=== PATIENT | female | born 1940 | race Two or more races ===

== ENCOUNTER 2016-06-29 15:21 | Inpatient (IN) | payer MEDICARE, OTHER ==
[~2016-06-29] VITALS: Ht 157.5 cm; Wt 72.6 kg
[2016-06-29] MEDS ORDERED: ONDANSETRON HCL 4MG/2ML VIAL IV STA (16:09)
[2016-06-29] MEDS ORDERED: MORPHINE SULFATE 4 MG/ML CPJ (NOT FOR IM USE) IV STA (16:09)
[2016-06-29] MEDS ORDERED: SODIUM CHLORIDE 0.9% 1,000 ML IV ONE (16:09)
[2016-06-29 16:30] LABS: EOSINOPHILS % 1.5 % (0.0-5.0); HEMATOCRIT. 37.9 % (36.0-48.0); HEMOGLOBIN. 12.2 g/dL (12.0-16.0); LYMPHOCYTES % 20.1 % (20.0-50.0); MEAN CORPUSCULAR HEMOGLOBIN 28.6 pg (28.0-32.0); MEAN CORPUSCULAR HGB CONC 32.2 g/dL (31.0-37.0); MEAN PLATELET VOLUME 7.7 fl (7.4-10.4); MONOCYTES % 12.5 % (2.0-8.0); NEUTROPHILS % 64.9 % (40.0-76.0); PLATELET 196 x1000/uL (130-400); RED BLOOD CELL COUNT 4.26 mill/uL (4.2-5.4); WHITE BLOOD COUNT 6.9 x1000/uL (4.5-11.0)
[2016-06-29 16:33] LABS: INR 1.1; PROTHROMBIN TIME 11.2 sec
[2016-06-29 16:34] LABS: ALBUMIN 3.3 g/dL (3.4-5.0); CALCIUM 9.5 mg/dL (8.5-10.1); CHLORIDE 96 mEq/L (98-107); INDEX HEMOLYSI 1 (1-3); INDEX ICTERIC 1 (1-4); INDEX LIPEMIC 1 (1-3)
[2016-06-29 16:38] LABS: ALANINE AMINOTRANSFERASE 17 IU/L (13-61); ANION GAP 15; CARBON DIOXIDE 31 mEq/L (21-32); LIPASE 277 IU/L (73-393); UREA NITROGEN BLOOD 52 mg/dL (7-21); eGFR 9 mL/min (>60)
[2016-06-29 16:42] LABS: NT PRO B-TYPE NATRIURETIC PEP 8249 pg/mL (5-125); TROPONIN I 0.02 ng/mL (0.00-0.04)
[2016-06-29] MEDS ORDERED: ASPIRIN 81MG TABLET PO ONE (19:00)
[2016-06-29] MEDS: CARVEDILOL 6.25 MG TABLET PO SCH ×2 (21:00→22:53)
[2016-06-29 22:30] VITALS: BP 178/85
[2016-06-29] MEDS: ATORVASTATIN CALCIUM 40MG TABLET PO SCH (22:53)
[2016-06-30] VITALS (7 sets, daily range): BP systolic 134–209; BP diastolic 79–102
[2016-06-30] MEDS ORDERED: MORPHINE SULFATE 4 MG/ML CPJ (NOT FOR IM USE) IV PRN (00:15)
[2016-06-30] MEDS ORDERED: MORPHINE SULFATE 2 MG/ML CPJ (NOT FOR IM USE) IV PRN (00:15)
[2016-06-30 06:34] LABS: HEMATOCRIT. 32.8 % (36.0-48.0); HEMOGLOBIN. 10.5 g/dL (12.0-16.0); MEAN CORPUSCULAR HEMOGLOBIN 28.6 pg (28.0-32.0); MEAN CORPUSCULAR VOLUME 89.6 fL (81.0-99.0); MEAN PLATELET VOLUME 7.9 fl (7.4-10.4); PLATELET 160 x1000/uL (130-400); RED BLOOD CELL COUNT 3.66 mill/uL (4.2-5.4); WHITE BLOOD COUNT 3.9 x1000/uL (4.5-11.0)
[2016-06-30] MEDS: OMEPRAZOLE 20MG CAPSULE EXTENDED RELEASE PO SCH (06:46)
[2016-06-30 07:24] LABS: DIFFERENTIAL COMMENT 1
[2016-06-30 07:51] LABS: ALANINE AMINOTRANSFERASE 14 IU/L (13-61); ALBUMIN 2.6 g/dL (3.4-5.0); ANION GAP 16; CALCIUM 8.2 mg/dL (8.5-10.1); CARBON DIOXIDE 29 mEq/L (21-32); CHLORIDE 99 mEq/L (98-107); INDEX HEMOLYSI 1 (1-3); INDEX ICTERIC 1 (1-4); INDEX LIPEMIC 1 (1-3); MAGNESIUM 1.9 mg/dL (1.8-2.4); PHOSPHORUS 5.5 mg/dL (2.5-4.9); UREA NITROGEN BLOOD 56 mg/dL (7-21); eGFR 8 mL/min (>60)
[2016-06-30] MEDS: CLOPIDOGREL 75MG TABLET PO SCH ×2 (09:00→18:43)
[2016-06-30] MEDS ORDERED: NIFEDIPINE XL 60MG TAB PO SCH (09:00)
[2016-06-30] MEDS ORDERED: CARVEDILOL 6.25 MG TABLET PO SCH (09:00)
[2016-06-30] MEDS: ASPIRIN 81MG TABLET PO SCH ×2 (09:00→18:43)
[2016-06-30] MEDS ORDERED: LOSARTAN POTASSIUM 50 MG TABLET PO SCH (09:00)
[2016-06-30] MEDS: SEVELAMER CARBONATE 800 MG TABLET PO SCH ×3 (09:53→16:40)
[2016-06-30] MEDS: LOSARTAN POTASSIUM 50 MG TABLET PO SCH (09:53)
[2016-06-30] MEDS: NIFEDIPINE XL 60MG TAB PO SCH (09:54)
[2016-06-30] MEDS: CARVEDILOL 6.25 MG TABLET PO SCH ×2 (09:54→20:31)
[2016-06-30] MEDS: FUROSEMIDE 80MG TABLET PO SCH (09:54)
[2016-06-30] MEDS: ENOXAPARIN 30MG/0.3ML SYR SUBCUT SCH ×2 (13:30→16:37)
[2016-06-30] MEDS ORDERED: ONDANSETRON HCL 4MG/2ML VIAL IV PRN (14:00)
[2016-06-30 14:01] LABS: ANISOCYTOSIS 1+; PLATELET ESTIMATE NORMAL
[2016-06-30] MEDS: METOCLOPRAMIDE HCL 5MG TABLET PO SCH ×2 (16:37→20:32)
[2016-06-30] MEDS: ATORVASTATIN CALCIUM 40MG TABLET PO SCH (20:31)
[2016-06-30] MEDS: HYDRALAZINE HCL 50MG TABLET PO SCH (20:31)
[2016-06-30] MEDS ORDERED: LIDOCAINE 5% PATCH TOP SCH (21:30)
[2016-06-30] MEDS: CLONIDINE 0.1MG TABLET PO PRN (23:06)
[2016-07-01 02:00] VITALS: BP 131/69
[2016-07-01 04:00] VITALS: BP 161/91
[2016-07-01 06:45] LABS: BASOPHILS % 0.4 % (0.0-2.0); EOSINOPHILS % 0.2 % (0.0-5.0); HEMATOCRIT. 33.8 % (36.0-48.0); HEMOGLOBIN. 10.9 g/dL (12.0-16.0); LYMPHOCYTES % 19.1 % (20.0-50.0); MEAN CORPUSCULAR HEMOGLOBIN 28.5 pg (28.0-32.0); MEAN CORPUSCULAR HGB CONC 32.2 g/dL (31.0-37.0); MEAN CORPUSCULAR VOLUME 88.5 fL (81.0-99.0); MEAN PLATELET VOLUME 7.8 fl (7.4-10.4); MONOCYTES % 13.4 % (2.0-8.0); NEUTROPHILS % 66.9 % (40.0-76.0); PLATELET 167 x1000/uL (130-400); RED BLOOD CELL COUNT 3.82 mill/uL (4.2-5.4); RED CELL DISTRIBUTION WIDTH 15.4 % (11.6-14.6); WHITE BLOOD COUNT 6.5 x1000/uL (4.5-11.0)
[2016-07-01 07:02] LABS: CHLORIDE 98 mEq/L (98-107); INDEX HEMOLYSI 1 (1-3); INDEX ICTERIC 1 (1-4); INDEX LIPEMIC 1 (1-3)
[2016-07-01] MEDS: METOCLOPRAMIDE HCL 5MG TABLET PO SCH ×4 (07:08→21:32)
[2016-07-01] MEDS: OMEPRAZOLE 20MG CAPSULE EXTENDED RELEASE PO SCH (07:08)
[2016-07-01 07:10] LABS: ALANINE AMINOTRANSFERASE 16 IU/L (13-61); ALBUMIN 2.7 g/dL (3.4-5.0); ANION GAP 18; CALCIUM 8.4 mg/dL (8.5-10.1); CARBON DIOXIDE 25 mEq/L (21-32); PHOSPHORUS 7.2 mg/dL (2.5-4.9); UREA NITROGEN BLOOD 45 mg/dL (7-21); eGFR 8 mL/min (>60)
[2016-07-01 08:00] VITALS: BP 179/97
[2016-07-01] MEDS: SEVELAMER CARBONATE 800 MG TABLET PO SCH ×2 (08:40→17:55)
[2016-07-01] MEDS: NIFEDIPINE XL 60MG TAB PO SCH ×2 (08:40→23:46)
[2016-07-01] MEDS: LOSARTAN POTASSIUM 50 MG TABLET PO SCH ×2 (08:41→21:31)
[2016-07-01] MEDS: CLONIDINE 0.1MG TABLET PO PRN (08:41)
[2016-07-01] MEDS: HYDRALAZINE HCL 50MG TABLET PO SCH (08:41)
[2016-07-01] MEDS: FUROSEMIDE 80MG TABLET PO SCH (08:41)
[2016-07-01] MEDS: ASPIRIN 81MG TABLET PO SCH (08:41)
[2016-07-01] MEDS: CLOPIDOGREL 75MG TABLET PO SCH (08:41)
[2016-07-01] MEDS: CARVEDILOL 6.25 MG TABLET PO SCH ×2 (08:42→21:32)
[2016-07-01] MEDS: ENOXAPARIN 30MG/0.3ML SYR SUBCUT SCH (08:42)
[2016-07-01 12:00] VITALS: BP 99/58
[2016-07-01] MEDS ORDERED: SEVELAMER CARBONATE 800 MG TABLET PO SCH (13:15)
[2016-07-01] MEDS ORDERED: MAGNESIUM CITRATE 300ML SOLUTION PO NR (13:30)
[2016-07-01 16:00] VITALS: BP_SYST 101; BP_SYST 110; BP_DIAS 56; BP_DIAS 58; BP_DIAS 66
[2016-07-01 20:00] VITALS: BP_SYST 109; BP_SYST 115; BP_SYST 129; BP_DIAS 57; BP_DIAS 67; BP_DIAS 75
[2016-07-01] MEDS: LIDOCAINE 5% PATCH TOP SCH (21:33)
[2016-07-01] MEDS: ATORVASTATIN CALCIUM 40MG TABLET PO SCH (21:33)
[2016-07-01] MEDS: HYDRALAZINE HCL 100MG TABLET PO SCH (23:46)
[2016-07-02] VITALS (7 sets, daily range): BP systolic 138–189; BP diastolic 62–92
[2016-07-02 05:14] LABS: BASOPHILS % 0.1 % (0.0-2.0); EOSINOPHILS % 0.7 % (0.0-5.0); HEMATOCRIT. 32.1 % (36.0-48.0); HEMOGLOBIN. 10.4 g/dL (12.0-16.0); LYMPHOCYTES % 22.1 % (20.0-50.0); MEAN CORPUSCULAR HEMOGLOBIN 28.4 pg (28.0-32.0); MEAN CORPUSCULAR HGB CONC 32.3 g/dL (31.0-37.0); MEAN CORPUSCULAR VOLUME 87.9 fL (81.0-99.0); MEAN PLATELET VOLUME 7.7 fl (7.4-10.4); MONOCYTES % 11.1 % (2.0-8.0); PLATELET 162 x1000/uL (130-400); RED BLOOD CELL COUNT 3.65 mill/uL (4.2-5.4); RED CELL DISTRIBUTION WIDTH 15.9 % (11.6-14.6); WHITE BLOOD COUNT 6.5 x1000/uL (4.5-11.0)
[2016-07-02 05:55] LABS: CALCIUM 8.1 mg/dL (8.5-10.1); MAGNESIUM 2.5 mg/dL (1.8-2.4)
[2016-07-02] MEDS: METOCLOPRAMIDE HCL 5MG TABLET PO SCH ×4 (06:42→20:59)
[2016-07-02] MEDS: OMEPRAZOLE 20MG CAPSULE EXTENDED RELEASE PO SCH (06:42)
[2016-07-02] MEDS: SEVELAMER CARBONATE 800 MG TABLET PO SCH ×3 (08:21→19:01)
[2016-07-02] MEDS: FUROSEMIDE 80MG TABLET PO SCH (08:21)
[2016-07-02] MEDS: HYDRALAZINE HCL 100MG TABLET PO SCH ×2 (08:26→22:22)
[2016-07-02] MEDS: CARVEDILOL 6.25 MG TABLET PO SCH ×2 (08:26→22:22)
[2016-07-02] MEDS: LOSARTAN POTASSIUM 50 MG TABLET PO SCH ×2 (08:26→22:22)
[2016-07-02] MEDS: ASPIRIN 81MG TABLET PO SCH (08:26)
[2016-07-02] MEDS: CLOPIDOGREL 75MG TABLET PO SCH (08:27)
[2016-07-02] MEDS: ENOXAPARIN 30MG/0.3ML SYR SUBCUT SCH (08:27)
[2016-07-02] MEDS: NIFEDIPINE XL 60MG TAB PO SCH ×2 (08:27→22:22)
[2016-07-02] MEDS: ATORVASTATIN CALCIUM 40MG TABLET PO SCH (20:59)
[2016-07-02] MEDS: LIDOCAINE 5% PATCH TOP SCH (21:09)
[2016-07-03] VITALS (7 sets, daily range): BP systolic 116–194; BP diastolic 52–80
[2016-07-03 04:17] LABS: CA 19-9 23 U/mL (0-35); CA 27.29 < 3.5 U/mL (0.0-38.6)
[2016-07-03] MEDS: OMEPRAZOLE 20MG CAPSULE EXTENDED RELEASE PO SCH (06:04)
[2016-07-03] MEDS: METOCLOPRAMIDE HCL 5MG TABLET PO SCH ×4 (06:04→20:59)
[2016-07-03 06:51] LABS: BASOPHILS % 0.3 % (0.0-2.0); HEMATOCRIT. 33.7 % (36.0-48.0); HEMOGLOBIN. 10.8 g/dL (12.0-16.0); LYMPHOCYTES % 17.4 % (20.0-50.0); MEAN CORPUSCULAR HEMOGLOBIN 28.3 pg (28.0-32.0); MEAN CORPUSCULAR VOLUME 88.3 fL (81.0-99.0); MEAN PLATELET VOLUME 8.1 fl (7.4-10.4); MONOCYTES % 12.2 % (2.0-8.0); NEUTROPHILS % 69.1 % (40.0-76.0); PLATELET 164 x1000/uL (130-400); RED BLOOD CELL COUNT 3.82 mill/uL (4.2-5.4); RED CELL DISTRIBUTION WIDTH 15.6 % (11.6-14.6); WHITE BLOOD COUNT 5.3 x1000/uL (4.5-11.0)
[2016-07-03 08:41] LABS: CALCIUM 8.8 mg/dL (8.5-10.1); MAGNESIUM 2.3 mg/dL (1.8-2.4); PHOSPHORUS 4.9 mg/dL (2.5-4.9)
[2016-07-03] MEDS: SEVELAMER CARBONATE 800 MG TABLET PO SCH ×3 (08:50→17:22)
[2016-07-03] MEDS: CARVEDILOL 6.25 MG TABLET PO SCH ×2 (08:50→20:59)
[2016-07-03] MEDS: FUROSEMIDE 80MG TABLET PO SCH (08:51)
[2016-07-03] MEDS: NIFEDIPINE XL 60MG TAB PO SCH ×2 (08:51→20:58)
[2016-07-03] MEDS: ASPIRIN 81MG TABLET PO SCH (08:51)
[2016-07-03] MEDS: CLOPIDOGREL 75MG TABLET PO SCH (08:51)
[2016-07-03] MEDS: LOSARTAN POTASSIUM 50 MG TABLET PO SCH ×2 (08:51→20:58)
[2016-07-03] MEDS: ENOXAPARIN 30MG/0.3ML SYR SUBCUT SCH (08:53)
[2016-07-03] MEDS: HYDRALAZINE HCL 100MG TABLET PO SCH ×2 (08:53→20:58)
[2016-07-03] MEDS: LIDOCAINE 5% PATCH TOP SCH (20:59)
[2016-07-03] MEDS: ATORVASTATIN CALCIUM 40MG TABLET PO SCH (21:03)
[2016-07-04] VITALS: BP 135/80
[2016-07-04 04:00] VITALS: BP 139/52
[2016-07-04] MEDS: METOCLOPRAMIDE HCL 5MG TABLET PO SCH ×4 (06:09→20:48)
[2016-07-04 06:52] LABS: BASOPHILS % 0.4 % (0.0-2.0); EOSINOPHILS % 2.1 % (0.0-5.0); HEMATOCRIT. 32.5 % (36.0-48.0); HEMOGLOBIN. 10.4 g/dL (12.0-16.0); LYMPHOCYTES % 18.7 % (20.0-50.0); MEAN CORPUSCULAR HEMOGLOBIN 28.5 pg (28.0-32.0); MEAN CORPUSCULAR VOLUME 89.2 fL (81.0-99.0); MEAN PLATELET VOLUME 8.1 fl (7.4-10.4); MONOCYTES % 13.3 % (2.0-8.0); NEUTROPHILS % 65.5 % (40.0-76.0); PLATELET 164 x1000/uL (130-400); RED BLOOD CELL COUNT 3.65 mill/uL (4.2-5.4); RED CELL DISTRIBUTION WIDTH 15.6 % (11.6-14.6); WHITE BLOOD COUNT 5.8 x1000/uL (4.5-11.0)
[2016-07-04 07:36] LABS: MAGNESIUM 2.3 mg/dL (1.8-2.4); PHOSPHORUS 4.4 mg/dL (2.5-4.9)
[2016-07-04 08:00] VITALS: BP_SYST 130; BP_SYST 137; BP_SYST 154; BP_DIAS 74; BP_DIAS 77; BP_DIAS 86
[2016-07-04] MEDS: CARVEDILOL 6.25 MG TABLET PO SCH ×2 (08:20→20:48)
[2016-07-04] MEDS: LOSARTAN POTASSIUM 50 MG TABLET PO SCH ×2 (08:20→20:48)
[2016-07-04] MEDS: SEVELAMER CARBONATE 800 MG TABLET PO SCH ×3 (08:20→17:13)
[2016-07-04] MEDS: NIFEDIPINE XL 60MG TAB PO SCH ×2 (08:21→20:48)
[2016-07-04] MEDS: ASPIRIN 81MG TABLET PO SCH (08:21)
[2016-07-04] MEDS: FUROSEMIDE 80MG TABLET PO SCH (08:21)
[2016-07-04] MEDS: ENOXAPARIN 30MG/0.3ML SYR SUBCUT SCH (08:23)
[2016-07-04] MEDS: HYDRALAZINE HCL 100MG TABLET PO SCH ×2 (08:24→20:48)
[2016-07-04] MEDS ORDERED: POLYETHYLENE GLYCOL 3350 (17GM) 1 DOSE PACK PO NR ×2 (09:00→16:05)
[2016-07-04] MEDS ORDERED: FAMOTIDINE 20MG TABLET PO SCH (09:00)
[2016-07-04] MEDS: SODIUM POLYSTYRENE SULFONATE 15 G/60 ML BOT PO NR ×2 (09:12→09:15)
[2016-07-04 11:57] VITALS: BP 145/63
[2016-07-04] MEDS ORDERED: ONDANSETRON HCL 4MG/2ML VIAL IV NR (13:00)
[2016-07-04] MEDS ORDERED: SODIUM POLYSTYRENE SULFONATE 15 G/60 ML BOT PO NR (13:00)
[2016-07-04 16:00] VITALS: BP 159/96
[2016-07-04 20:00] VITALS: BP 157/72
[2016-07-04] MEDS: LIDOCAINE 5% PATCH TOP SCH (20:51)
[2016-07-04] MEDS: ATORVASTATIN CALCIUM 40MG TABLET PO SCH (20:58)
[2016-07-05] VITALS: BP 158/75
[2016-07-05 04:00] VITALS: BP 127/85
[2016-07-05 06:19] VITALS: BP 150/68
[2016-07-05 06:26] LABS: CALCIUM 9.3 mg/dL (8.5-10.1); MAGNESIUM 2.3 mg/dL (1.8-2.4); PHOSPHORUS 5.2 mg/dL (2.5-4.9)
[2016-07-05] MEDS: METOCLOPRAMIDE HCL 5MG TABLET PO SCH (06:48)
[2016-07-05] MEDS: SEVELAMER CARBONATE 800 MG TABLET PO SCH (06:49)
[2016-07-05 07:49] VITALS: BP 158/77
[2016-07-05 07:54] LABS: BASOPHILS % 0.5 % (0.0-2.0); EOSINOPHILS % 2.6 % (0.0-5.0); HEMOGLOBIN. 10.2 g/dL (12.0-16.0); LYMPHOCYTES % 29.3 % (20.0-50.0); MEAN CORPUSCULAR HEMOGLOBIN 28.2 pg (28.0-32.0); MEAN CORPUSCULAR VOLUME 88.1 fL (81.0-99.0); MEAN PLATELET VOLUME 8.3 fl (7.4-10.4); MONOCYTES % 14.3 % (2.0-8.0); NEUTROPHILS % 53.3 % (40.0-76.0); PLATELET 172 x1000/uL (130-400); RED BLOOD CELL COUNT 3.64 mill/uL (4.2-5.4); RED CELL DISTRIBUTION WIDTH 15.7 % (11.6-14.6); WHITE BLOOD COUNT 4.2 x1000/uL (4.5-11.0)
[2016-07-06 14:11] LABS: CANCER ANTIGEN 125 25.6 U/mL (0.0-38.1)
== END 2016-07-05 08:38 | disposition home or self-care (01) | DRG 64 ==
LOC: ER 15:22 → 8WST 18:54
PROVIDERS: ADMIT Internal Medicine Critical Care Medicine; ATTEND Internal Medicine Critical Care Medicine
PROC: 5A1D60Z (ICD-10-PCS; principal; 2016-06-30)
DX: I63.9 Cerebral infarction, unspecified (principal); J96.91 Respiratory failure, unspecified with hypoxia; N18.6 End stage renal disease; N25.81 Secondary hyperparathyroidism of renal origin; E44.0 Moderate protein-calorie malnutrition; I13.11 Hypertensive heart and chronic kidney disease without heart failure, with stage 5 chronic kidney disease, or end stage renal disease; I42.9 Cardiomyopathy, unspecified; D64.9 Anemia, unspecified; E11.22 Type 2 diabetes mellitus with diabetic chronic kidney disease; E83.39 Other disorders of phosphorus metabolism; E87.5 Hyperkalemia; I25.10 Atherosclerotic heart disease of native coronary artery without angina pectoris; I27.2 Other secondary pulmonary hypertension; I70.0 Atherosclerosis of aorta; J44.9 Chronic obstructive pulmonary disease, unspecified; K44.9 Diaphragmatic hernia without obstruction or gangrene; K57.30 Diverticulosis of large intestine without perforation or abscess without bleeding; K59.00 Constipation, unspecified; M32.14 Glomerular disease in systemic lupus erythematosus; N28.1 Cyst of kidney, acquired; N83.9 Noninflammatory disorder of ovary, fallopian tube and broad ligament, unspecified; Z96.1 Presence of intraocular lens; S20.212A Contusion of left front wall of thorax, initial encounter; X58.XXXA Exposure to other specified factors, initial encounter; Z99.2 Dependence on renal dialysis; I25.2 Old myocardial infarction; Z83.3 Family history of diabetes mellitus; Z82.49 Family history of ischemic heart disease and other diseases of the circulatory system; Z86.73 Personal history of transient ischemic attack (TIA), and cerebral infarction without residual deficits; Y93.89 Activity, other specified; Y92.89 Other specified places as the place of occurrence of the external cause; Y99.8 Other external cause status; Z68.29 Body mass index [BMI] 29.0-29.9, adult; Z87.891 Personal history of nicotine dependence
CPT/HCPCS: 36415; 70551; 71010; 71100; 71250; 73090; 74176; 76830; 76856; 78306; 80048; 80053; 80061; 82378; 83036; 83690; 83735; 83880; 84100; 84132; 84134; 84484; 85025; 85610; 86300; 86301; 86304; 86305; 86850; 86900; 93005; 93306; 93880; 96361; 96374; 96375; 99285; A9503; C1893; J1650; J2270; J2405; J7030; J8597

== ENCOUNTER → 2016-07-11 | Day surgery (SDC) | payer MEDICARE, OTHER ==
[~2016-07-11] VITALS: Ht 157.5 cm; Wt 72.1 kg
[~2016-07-11] MED LIST: ASPI-1035 PO; ATOR80TA PO; CARV6.2548 PO; CLOP75TA2 PO; FENTANYL CITRATE/PF 50MCG/ML 2ML VIAL ONE; FURO80TA87 PO; LOSA1TAB34 PO; NIFE60TA64 PO
== END | disposition home or self-care (01) ==
LOC: RAD 08:30
PROVIDERS: ATTEND Internal Medicine Critical Care Medicine
DX: R91.8 Other nonspecific abnormal finding of lung field (principal)
CPT/HCPCS: J3010

== ENCOUNTER 2016-07-16 11:28 | Emergency (ER) | payer MEDICARE, OTHER ==
[~2016-07-16] VITALS: Ht 165.1 cm; Wt 60.0 kg
[~2016-07-16 11:28] MED LIST changes: -FENTANYL CITRATE/PF 50MCG/ML 2ML VIAL ONE
[2016-07-16] MEDS ORDERED: CLONIDINE 0.2MG TABLET PO ONE (12:15)
[2016-07-16] MEDS ORDERED: CARVEDILOL 6.25 MG TABLET PO ONE (12:15)
[2016-07-16] MEDS ORDERED: LOSARTAN POTASSIUM 50 MG TABLET PO ONE (12:15)
[2016-07-16] MEDS ORDERED: NIFEDIPINE XL 60MG TAB PO ONE (12:15)
[2016-07-16 13:36] VITALS: BP 175/81
== END 2016-07-16 14:58 | disposition home or self-care (01) ==
LOC: ER 14:49
DX: I12.0 Hypertensive chronic kidney disease with stage 5 chronic kidney disease or end stage renal disease (principal); N18.6 End stage renal disease; Z99.2 Dependence on renal dialysis; Z88.8 Allergy status to other drugs, medicaments and biological substances
CPT/HCPCS: 99284

== ENCOUNTER → 2016-07-16 | Day surgery (SDC) | payer MEDICARE, OTHER ==
[2016-07-16] VITALS (9 sets, daily range): BP systolic 205–230; BP diastolic 89–104
[~2016-07-16] VITALS: Ht 160 cm; Wt 47.2 kg
== END | disposition home or self-care (01) ==
LOC: RAD 09:20
PROVIDERS: ATTEND Internal Medicine Critical Care Medicine
DX: R91.8 Other nonspecific abnormal finding of lung field (principal); Z53.8 Procedure and treatment not carried out for other reasons
CPT/HCPCS: J3010

== ENCOUNTER → 2016-08-24 | Outpatient (CLI) | payer MEDICARE, OTHER ==
[~2016-08-24] MED LIST changes: -CLOP75TA2 PO
== END | disposition home or self-care (01) ==
LOC: RAD 08:40
PROVIDERS: ATTEND Internal Medicine Critical Care Medicine
DX: Z01.811 Encounter for preprocedural respiratory examination (principal); I12.0 Hypertensive chronic kidney disease with stage 5 chronic kidney disease or end stage renal disease; N18.5 Chronic kidney disease, stage 5; J44.9 Chronic obstructive pulmonary disease, unspecified; I51.7 Cardiomegaly; I49.9 Cardiac arrhythmia, unspecified; R94.31 Abnormal electrocardiogram [ECG] [EKG]
CPT/HCPCS: 71020; 93005

== ENCOUNTER → 2016-08-27 | Outpatient (CLI) | payer MEDICARE, OTHER ==
[2016-08-27 09:20] LABS: BASOPHILS % 0.8 % (0.0-2.0); EOSINOPHILS % 2.3 % (0.0-5.0); HEMATOCRIT. 27.6 % (36.0-48.0); HEMOGLOBIN. 8.8 g/dL (12.0-16.0); LYMPHOCYTES % 20.9 % (20.0-50.0); MEAN CORPUSCULAR HEMOGLOBIN 30.4 pg (28.0-32.0); MEAN CORPUSCULAR VOLUME 94.7 fL (81.0-99.0); MEAN PLATELET VOLUME 6.5 fl (7.4-10.4); MONOCYTES % 9.2 % (2.0-8.0); NEUTROPHILS % 66.8 % (40.0-76.0); PLATELET 331 x1000/uL (130-400); RED BLOOD CELL COUNT 2.91 mill/uL (4.2-5.4); RED CELL DISTRIBUTION WIDTH 18.5 % (11.6-14.6)
[2016-08-27 09:22] LABS: CLARITY URINE CLEAR (CLEAR); COLOR URINE YELLOW (YELLOW); GLUCOSE URINE NEGATIVE (NEGATIVE); KETONES URINE NEGATIVE (NEGATIVE); LEUKOCYTE ESTERASE URINE NEGATIVE (NEGATIVE); NITRITE URINE NEGATIVE (NEGATIVE); OCCULT BLOOD URINE NEGATIVE (NEGATIVE); PH URINE 8.5 (4.5-8.0); PROTEIN URINE 3+ (NEGATIVE); SPECIFIC GRAVITY URINE 1.012 (1.005-1.030); UROBILINOGEN URINE 0.2 E.U./dL (0.2-1.0)
[2016-08-27 09:30] LABS: INR 1.1; PARTIAL THROMBOPLASTIN TIME 30.5 sec (24.0-34.0)
[2016-08-27 09:46] LABS: CARBON DIOXIDE 32 mEq/L (21-32); CHLORIDE 101 mEq/L (98-107)
== END | disposition home or self-care (01) ==
LOC: LAB 08:40
PROVIDERS: ATTEND Internal Medicine Critical Care Medicine
DX: Z01.811 Encounter for preprocedural respiratory examination (principal); I12.0 Hypertensive chronic kidney disease with stage 5 chronic kidney disease or end stage renal disease; N18.5 Chronic kidney disease, stage 5
CPT/HCPCS: 36415; 80053; 81001; 85025; 85610; 85730; 87086

== ENCOUNTER 2017-01-15 10:34 | Inpatient (IN) | payer MEDICARE, OTHER ==
[~2017-01-15] VITALS: Ht 160 cm; Wt 45.8 kg
[~2017-01-15 10:34] MED LIST changes: -ASPI-1035 PO; +ASPI-1159 PO
[2017-01-15] MEDS ORDERED: HYDRALAZINE 20MG/ML VIAL IV ONE (11:45)
[2017-01-15 11:58] LABS: EOSINOPHILS % 0.2 % (0.0-5.0); HEMATOCRIT. 33.3 % (36.0-48.0); LYMPHOCYTES % 14.6 % (20.0-50.0); MEAN CORPUSCULAR VOLUME 90.5 fL (81.0-99.0); MEAN PLATELET VOLUME 7.6 fl (7.4-10.4); MONOCYTES % 7.9 % (2.0-8.0); NEUTROPHILS % 76.3 % (40.0-76.0); PLATELET 138 x1000/uL (130-400); RED BLOOD CELL COUNT 3.68 mill/uL (4.2-5.4); RED CELL DISTRIBUTION WIDTH 18.6 % (11.6-14.6)
[2017-01-15 12:07] LABS: PARTIAL THROMBOPLASTIN TIME 28.7 sec (23.4-31.0); PROTHROMBIN TIME 10.4 sec (9.4-11.6)
[2017-01-15 12:12] LABS: CARBON DIOXIDE 24 mEq/L (21-32); CHLORIDE 102 mEq/L (98-107); PHOSPHORUS 3.3 mg/dL (2.5-4.9)
[2017-01-15] MEDS ORDERED: TETANUS, DIPHTHERIA, PERTUSSIS VAC/PF 0.5ML (>7YR OLD) IM ONE (12:15)
[2017-01-15 12:18] LABS: TROPONIN I 0.04 ng/mL (0.00-0.04)
[2017-01-15] MEDS ORDERED: LABETALOL 5MG/ML SYR 20 MG/4 ML SYRINGE IV ONE (12:30)
[2017-01-15 14:44] LABS: BASOPHILS % 0.5 % (0.0-2.0); EOSINOPHILS % 0.2 % (0.0-5.0); HEMATOCRIT. 31.7 % (36.0-48.0); HEMOGLOBIN. 10.6 g/dL (12.0-16.0); LYMPHOCYTES % 11.7 % (20.0-50.0); MEAN CORPUSCULAR HEMOGLOBIN 30.5 pg (28.0-32.0); MEAN PLATELET VOLUME 7.6 fl (7.4-10.4); MONOCYTES % 12.1 % (2.0-8.0); NEUTROPHILS % 75.5 % (40.0-76.0); PLATELET 122 x1000/uL (130-400); RED BLOOD CELL COUNT 3.48 mill/uL (4.2-5.4); RED CELL DISTRIBUTION WIDTH 18.4 % (11.6-14.6)
[2017-01-15] MEDS ORDERED: CLONIDINE 0.2MG TABLET PO ONE (14:45)
[2017-01-15] MEDS ORDERED: HYDRALAZINE 20MG/ML VIAL IV NR (16:30)
[2017-01-15] MEDS ORDERED: CARVEDILOL 6.25 MG TABLET PO SCH (17:00)
[2017-01-15] MEDS: SEVELAMER CARBONATE 800 MG TABLET PO SCH (18:30)
[2017-01-15 21:00] VITALS: BP 152/57
[2017-01-15 22:00] VITALS: BP 152/57
[2017-01-16] VITALS: BP 168/61
[2017-01-16 04:00] VITALS: BP 155/60
[2017-01-16 06:45] LABS: HEMATOCRIT. 25.5 % (36.0-48.0); HEMOGLOBIN. 8.3 g/dL (12.0-16.0); MEAN CORPUSCULAR HEMOGLOBIN 29.7 pg (28.0-32.0); MEAN CORPUSCULAR VOLUME 91.1 fL (81.0-99.0); MEAN PLATELET VOLUME 8.3 fl (7.4-10.4); PLATELET 101 x1000/uL (130-400); RED CELL DISTRIBUTION WIDTH 18.5 % (11.6-14.6)
[2017-01-16 07:25] LABS: PHOSPHORUS 4.2 mg/dL (2.5-4.9)
[2017-01-16 08:00] VITALS: BP 120/60
[2017-01-16] MEDS: CARVEDILOL 6.25 MG TABLET PO SCH ×2 (09:00→18:24)
[2017-01-16] MEDS: NIFEDIPINE XL 60MG TAB PO SCH (09:00)
[2017-01-16] MEDS: LIDOCAINE 5% PATCH TOP SCH (09:00)
[2017-01-16] MEDS ORDERED: NIFEDIPINE XL 60MG TAB PO SCH (09:00)
[2017-01-16] MEDS: FOLIC ACID/VITAMIN B COMP W-C TABLET PO SCH (09:14)
[2017-01-16] MEDS: SEVELAMER CARBONATE 800 MG TABLET PO SCH ×3 (09:14→18:24)
[2017-01-16] MEDS: LOSARTAN POTASSIUM 50 MG TABLET PO SCH (11:48)
[2017-01-16 12:00] VITALS: BP 124/64
[2017-01-16] MEDS ORDERED: INFLUENZA VIRUS VACCINE 0.5ML SYR IM ONE (12:00)
[2017-01-16] MEDS ORDERED: PNEUMOCOCCAL 23-VAL P-SAC VAC 0.5 ML IM ONE (12:00)
[2017-01-16] MEDS: HYDROCODONE/ACETAMINOPHEN 5/325MG TABLET PO PRN ×2 (13:46→20:51)
[2017-01-16 16:00] VITALS: BP 150/69
[2017-01-16 18:09] LABS: PLATELET ESTIMATE DECREASED
[2017-01-16 20:00] VITALS: BP 143/66
[2017-01-16] MEDS: CLONIDINE 0.1MG TABLET PO PRN (23:54)
[2017-01-17] VITALS: BP 172/79
[2017-01-17 04:00] VITALS: BP 146/65
[2017-01-17 06:53] LABS: BASOPHILS % 0.5 % (0.0-2.0); EOSINOPHILS % 3.9 % (0.0-5.0); HEMATOCRIT. 26.3 % (36.0-48.0); HEMOGLOBIN. 8.8 g/dL (12.0-16.0); LYMPHOCYTES % 24.7 % (20.0-50.0); MEAN CORPUSCULAR HEMOGLOBIN 30.5 pg (28.0-32.0); MEAN CORPUSCULAR VOLUME 91.6 fL (81.0-99.0); MEAN PLATELET VOLUME 8.1 fl (7.4-10.4); MONOCYTES % 13.4 % (2.0-8.0); NEUTROPHILS % 57.5 % (40.0-76.0); PLATELET 101 x1000/uL (130-400); RED BLOOD CELL COUNT 2.87 mill/uL (4.2-5.4); RED CELL DISTRIBUTION WIDTH 18.8 % (11.6-14.6)
[2017-01-17 08:00] VITALS: BP 171/71
[2017-01-17] MEDS: SEVELAMER CARBONATE 800 MG TABLET PO SCH (08:51)
[2017-01-17] MEDS: LIDOCAINE 5% PATCH TOP SCH (08:51)
[2017-01-17] MEDS: FOLIC ACID/VITAMIN B COMP W-C TABLET PO SCH (08:51)
[2017-01-17] MEDS: CARVEDILOL 6.25 MG TABLET PO SCH ×2 (09:00→17:52)
[2017-01-17] MEDS: LOSARTAN POTASSIUM 50 MG TABLET PO SCH (09:00)
[2017-01-17] MEDS: NIFEDIPINE XL 60MG TAB PO SCH (09:00)
[2017-01-17 12:00] VITALS: BP 183/75
[2017-01-17 16:00] VITALS: BP 122/70
[2017-01-17 20:00] VITALS: BP 129/53
[2017-01-17] MEDS ORDERED: EPOETIN ALFA 4000UNITS/ML VIAL SUBCUT SCH (21:00)
[2017-01-18] VITALS: BP 166/103
[2017-01-18 04:00] VITALS: BP 176/80
[2017-01-18 08:00] VITALS: BP 168/72
[2017-01-18] MEDS: FOLIC ACID/VITAMIN B COMP W-C TABLET PO SCH (09:02)
[2017-01-18] MEDS: NIFEDIPINE XL 60MG TAB PO SCH (09:02)
[2017-01-18] MEDS: LOSARTAN POTASSIUM 50 MG TABLET PO SCH ×2 (09:02→18:49)
[2017-01-18] MEDS: CARVEDILOL 6.25 MG TABLET PO SCH ×2 (09:03→16:58)
[2017-01-18 10:01] LABS: BASOPHILS % 0.7 % (0.0-2.0); EOSINOPHILS % 3.4 % (0.0-5.0); HEMATOCRIT. 27.8 % (36.0-48.0); LYMPHOCYTES % 21.4 % (20.0-50.0); MEAN CORPUSCULAR HEMOGLOBIN 29.6 pg (28.0-32.0); MEAN CORPUSCULAR VOLUME 91.3 fL (81.0-99.0); MEAN PLATELET VOLUME 8.2 fl (7.4-10.4); MONOCYTES % 13.7 % (2.0-8.0); NEUTROPHILS % 60.8 % (40.0-76.0); PLATELET 107 x1000/uL (130-400); RED BLOOD CELL COUNT 3.05 mill/uL (4.2-5.4)
[2017-01-18] MEDS ORDERED: SORBITOL 70% SOLN 30ML PO NR ×2 (10:30→11:00)
[2017-01-18 10:42] LABS: PHOSPHORUS 4.7 mg/dL (2.5-4.9)
[2017-01-18] MEDS: LIDOCAINE 5% PATCH TOP SCH (10:54)
[2017-01-18] MEDS ORDERED: SODIUM POLYSTYRENE SULFONATE 15 G/60 ML BOT PO NR (11:30)
[2017-01-18 12:00] VITALS: BP 140/69
[2017-01-18 16:00] VITALS: BP 183/80
[2017-01-18] MEDS: CLONIDINE 0.1MG TABLET PO PRN (17:48)
[2017-01-18] MEDS: HYDRALAZINE HCL 100MG TABLET PO SCH (18:49)
[2017-01-18 20:00] VITALS: BP 177/78
[2017-01-18] MEDS: GUAIFENESIN 600MG ER TABLET PO SCH (20:11)
[2017-01-18] MEDS: HYDROCODONE/ACETAMINOPHEN 5/325MG TABLET PO PRN (20:11)
[2017-01-19] VITALS: BP 168/74
[2017-01-19 01:56] VITALS: BP 123/51
[2017-01-19] MEDS ORDERED: HYDR100T26 PO (02:15)
[2017-01-19] MEDS ORDERED: MEMA10TA2 PO (02:15)
[2017-01-19] MEDS ORDERED: ATOR40TA70 PO (02:15)
[2017-01-19] MEDS ORDERED: SEVE800T8 PO (02:15)
[2017-01-19] MEDS ORDERED: LOSA50TA20 PO (02:15)
[2017-01-19] MEDS ORDERED: CLOP75TA16 PO (02:15)
[2017-01-19 04:00] VITALS: BP 128/59
[2017-01-19] MEDS: HYDRALAZINE HCL 100MG TABLET PO SCH (06:22)
[2017-01-19 08:14] VITALS: BP 123/51
[2017-01-19] MEDS: GUAIFENESIN 600MG ER TABLET PO SCH (09:00)
[2017-01-19] MEDS: LOSARTAN POTASSIUM 50 MG TABLET PO SCH (09:00)
[2017-01-19] MEDS: FOLIC ACID/VITAMIN B COMP W-C TABLET PO SCH (09:00)
[2017-01-19] MEDS: NIFEDIPINE XL 60MG TAB PO SCH (09:00)
[2017-01-19] MEDS: CARVEDILOL 6.25 MG TABLET PO SCH (09:00)
== END 2017-01-19 11:27 | disposition home or self-care (01) | DRG 913 ==
LOC: ER 11:38 → 7WST 12:56 → CANRESERV 16:37 → ENRESERV 16:37 → CANBEDREQ 19:37
PROVIDERS: ADMIT Internal Medicine Critical Care Medicine; ATTEND Internal Medicine Critical Care Medicine
PROC: 5A1D70Z Performance of Urinary Filtration, Intermittent, Less than 6 Hours Per Day (ICD-10-PCS; 2017-01-15)
PROC: 5A1D70Z Performance of Urinary Filtration, Intermittent, Less than 6 Hours Per Day (ICD-10-PCS; principal; 2017-01-17)
PROC: 5A1D70Z Performance of Urinary Filtration, Intermittent, Less than 6 Hours Per Day (ICD-10-PCS; 2017-01-19)
DX: S09.90XA Unspecified injury of head, initial encounter (principal); N18.6 End stage renal disease; I12.0 Hypertensive chronic kidney disease with stage 5 chronic kidney disease or end stage renal disease; R71.0 Precipitous drop in hematocrit; E83.39 Other disorders of phosphorus metabolism; F03.90 Unspecified dementia, unspecified severity, without behavioral disturbance, psychotic disturbance, mood disturbance, and anxiety; N25.81 Secondary hyperparathyroidism of renal origin; S01.511A Laceration without foreign body of lip, initial encounter; I16.0 Hypertensive urgency; W06.XXXA Fall from bed, initial encounter; S29.9XXA Unspecified injury of thorax, initial encounter; L93.0 Discoid lupus erythematosus; K21.9 Gastro-esophageal reflux disease without esophagitis; J44.9 Chronic obstructive pulmonary disease, unspecified; H26.9 Unspecified cataract; M81.0 Age-related osteoporosis without current pathological fracture; E78.5 Hyperlipidemia, unspecified; H70.11 Chronic mastoiditis, right ear; I25.2 Old myocardial infarction; Z86.73 Personal history of transient ischemic attack (TIA), and cerebral infarction without residual deficits; Z87.891 Personal history of nicotine dependence; Z88.8 Allergy status to other drugs, medicaments and biological substances; Z99.2 Dependence on renal dialysis; Z79.82 Long term (current) use of aspirin; Z79.899 Other long term (current) drug therapy; Y93.89 Activity, other specified; Y92.89 Other specified places as the place of occurrence of the external cause; Y99.8 Other external cause status; Z91.15 Patient's noncompliance with renal dialysis; Z98.42 Cataract extraction status, left eye; Z98.41 Cataract extraction status, right eye; Z82.69 Family history of other diseases of the musculoskeletal system and connective tissue
CPT/HCPCS: 36415; 70450; 71010; 71250; 80048; 80053; 82270; 82378; 82550; 83690; 83735; 84100; 84443; 84484; 85025; 85044; 85610; 85730; 87040; 90471; 90715; 93005; 96374; 96375; 96376; 99291; J0360; J0885; J3490; J7030

== ENCOUNTER 2018-03-18 12:03 | Inpatient (IN) | payer MEDICARE, OTHER ==
[~2018-03-18] VITALS: Ht 162.6 cm; Wt 45.4 kg
[~2018-03-18 12:03] MED LIST changes: -ASPI-1159 PO; -ATOR80TA PO; +CARB1TAB9 PO; -CARV6.2548 PO; +CLOP75TA33 PO; -FURO80TA87 PO; +LEVE750T4 PO; -LOSA1TAB34 PO; +LOSA50TA20 PO; -NIFE60TA64 PO; +SEVE800T8 PO; +[UNRECOGNIZED DRUG - OTHER] PO
[2018-03-18] MEDS ORDERED: IPRATROPIUM BROMIDE (0.02%) 0.5MG/2.5ML NEB HHN STA (12:15)
[2018-03-18] MEDS ORDERED: LABETALOL HCL 20MG/4ML CARPUJECT IV ONE (12:15)
[2018-03-18] MEDS ORDERED: ALBUTEROL (0.083%) 2.5MG/3ML NEB INH STA (12:15)
[2018-03-18 12:43] LABS: EOSINOPHILS % 1.7 % (0.0-5.0); HEMATOCRIT. 40.5 % (36.0-48.0); HEMOGLOBIN. 13.6 g/dL (12.0-16.0); MEAN CORPUSCULAR HEMOGLOBIN 32.7 pg (28.0-32.0); MEAN CORPUSCULAR VOLUME 97.8 fL (81.0-99.0); MEAN PLATELET VOLUME 7.8 fl (7.4-10.4); MONOCYTES % 9.9 % (2.0-8.0); NEUTROPHILS % 55.4 % (40.0-76.0); PLATELET 147 x1000/uL (130-400); RED BLOOD CELL COUNT 4.14 mill/uL (4.2-5.4); RED CELL DISTRIBUTION WIDTH 16.7 % (11.6-14.6)
[2018-03-18 12:50] LABS: CHLORIDE 100 mEq/L (98-107)
[2018-03-18 13:12] LABS: BG BASE EXCESS 3.2 mmol/L (-2.0-2.0); BG BILEVEL POS AIRWAY PRESSURE 15/5; BG CARBOXYHEMOGLOBIN 0.7 % (0.5-1.5); BG DEOXYHEMOGLOBIN 0.6 % (0.0-5.0); BG FRACTION INSPIRED OXYGEN 40; BG HCO3 ACT 27.1 mmol/L (22.0-26.0); BG METHEMOGLOBIN 0.3 % (0.0-1.5); BG OXYGEN SATURATION 99.4 % (92.0-98.5); BG OXYHEMOGLOBIN 98.4 % (94.0-97.0); BG PCO2 38.7 mmHg (35.0-45.0); BG PH 7.463 (7.350-7.450); BG PO2 220.3 mmHg (75.0-100.0); BG SAMPLE SITE RIGHT RADIAL; BG TOTAL HEMOGLOBIN 12.5 g/dL (12.0-18.0); BG VENT MODE MASK - BIPAP
[2018-03-18] MEDS ORDERED: METHYLPREDNISOLONE SOD SUCC 125 MG/2 ML VIAL IV ONE (14:00)
[2018-03-18] MEDS ORDERED: HYDRALAZINE 20MG/ML VIAL IV NR (16:30)
[2018-03-18] MEDS ORDERED: HYDRALAZINE 20MG/ML VIAL IV ONE (16:30)
[2018-03-19] VITALS (8 sets, daily range): BP systolic 132–227; BP diastolic 62–95
[2018-03-19] MEDS: HYDRALAZINE HCL 50MG TABLET PO SCH ×3 (06:22→21:31)
[2018-03-19 07:10] LABS: BASOPHILS % 0.2 % (0.0-2.0); HEMATOCRIT. 33.4 % (36.0-48.0); LYMPHOCYTES % 33.3 % (20.0-50.0); MEAN CORPUSCULAR HEMOGLOBIN 32.5 pg (28.0-32.0); MEAN CORPUSCULAR VOLUME 98.3 fL (81.0-99.0); MEAN PLATELET VOLUME 8.2 fl (7.4-10.4); NEUTROPHILS % 58.5 % (40.0-76.0); PLATELET 168 x1000/uL (130-400); RED CELL DISTRIBUTION WIDTH 16.8 % (11.6-14.6)
[2018-03-19 07:54] LABS: CHLORIDE 101 mEq/L (98-107)
[2018-03-19 08:20] LABS: PHOSPHORUS 5.6 mg/dL (2.5-4.9)
[2018-03-19] MEDS: LEVETIRACETAM 500MG TABLET PO SCH ×2 (08:44→20:52)
[2018-03-19] MEDS: CALCIUM ACETATE 667MG CAPSULE PO SCH ×3 (08:45→18:33)
[2018-03-19] MEDS: CLOPIDOGREL 75MG TABLET PO SCH (08:45)
[2018-03-19] MEDS: CARVEDILOL 12.5MG TABLET PO SCH ×2 (08:45→20:52)
[2018-03-19] MEDS: LOSARTAN POTASSIUM 100 MG TABLET PO SCH (08:45)
[2018-03-19] MEDS: FOLIC ACID/VITAMIN B COMP W-C TABLET PO SCH (08:45)
[2018-03-19] MEDS: CLONIDINE 0.1MG TABLET PO PRN ×2 (08:45→18:33)
[2018-03-19] MEDS: FAMOTIDINE 20MG TABLET PO SCH (08:49)
[2018-03-19 08:55] LABS: BG BASE EXCESS -0.6 mmol/L (-2.0-2.0); BG CARBOXYHEMOGLOBIN 0.6 % (0.5-1.5); BG FRACTION INSPIRED OXYGEN 28; BG HCO3 ACT 24.7 mmol/L (22.0-26.0); BG METHEMOGLOBIN 0.3 % (0.0-1.5); BG OXYHEMOGLOBIN 98.1 % (94.0-97.0); BG PCO2 42.9 mmHg (35.0-45.0); BG PH 7.378 (7.350-7.450); BG PO2 145.1 mmHg (75.0-100.0); BG SAMPLE SITE RIGHT RADIAL; BG TOTAL HEMOGLOBIN 12.6 g/dL (12.0-18.0); BG VENT MODE NASAL CANNULA
[2018-03-19] MEDS ORDERED: IPRATROPIUM/ALBUTEROL 0.5-3(2.5)MG/3ML NEB HHN SCH (09:00)
[2018-03-19 11:42] LABS: TOTAL IRON BINDING CAPACITY 176 ug/dL (250-450)
[2018-03-20] VITALS: BP 169/72
[2018-03-20 04:00] VITALS: BP 151/56
[2018-03-20] MEDS: HYDRALAZINE HCL 50MG TABLET PO SCH (06:08)
[2018-03-20 08:00] VITALS: BP 145/55
[2018-03-20] MEDS: LEVETIRACETAM 500MG TABLET PO SCH (08:18)
[2018-03-20] MEDS: CLOPIDOGREL 75MG TABLET PO SCH (08:18)
[2018-03-20] MEDS: CALCIUM ACETATE 667MG CAPSULE PO SCH (08:18)
[2018-03-20] MEDS: FOLIC ACID/VITAMIN B COMP W-C TABLET PO SCH (08:19)
[2018-03-20] MEDS: FAMOTIDINE 20MG TABLET PO SCH (08:20)
[2018-03-20] MEDS: CARVEDILOL 12.5MG TABLET PO SCH (08:24)
[2018-03-20] MEDS: LOSARTAN POTASSIUM 100 MG TABLET PO SCH (08:24)
[2018-03-20 08:26] VITALS: BP 145/55
== END 2018-03-20 09:25 | disposition home or self-care (01) | DRG 682 ==
LOC: ER 12:09 → EDBEDREQ 14:53 → EDBEDREQTM 14:53 → EDBEDREQSVC 14:53 → CANRESERV 15:58 → ENRESERV 15:58 → EDBEDREQSVC 17:32 → EDBEDREQTM 17:32 → 6WST 17:32 → ENRESERV 03-19 00:20
PROVIDERS: ADMIT Internal Medicine Critical Care Medicine; ATTEND Internal Medicine Critical Care Medicine
PROC: 5A09457 Assistance with Respiratory Ventilation, 24-96 Consecutive Hours, Continuous Positive Airway Pressure (ICD-10-PCS; 2018-03-18)
PROC: 5A1D70Z Performance of Urinary Filtration, Intermittent, Less than 6 Hours Per Day (ICD-10-PCS; principal; 2018-03-19)
DX: I12.0 Hypertensive chronic kidney disease with stage 5 chronic kidney disease or end stage renal disease (principal); J96.22 Acute and chronic respiratory failure with hypercapnia; N18.6 End stage renal disease; J96.21 Acute and chronic respiratory failure with hypoxia; J43.9 Emphysema, unspecified; Z66 Do not resuscitate; D64.9 Anemia, unspecified; E78.00 Pure hypercholesterolemia, unspecified; E78.5 Hyperlipidemia, unspecified; R91.8 Other nonspecific abnormal finding of lung field; F03.90 Unspecified dementia, unspecified severity, without behavioral disturbance, psychotic disturbance, mood disturbance, and anxiety; G40.909 Epilepsy, unspecified, not intractable, without status epilepticus; Z96.1 Presence of intraocular lens; K21.9 Gastro-esophageal reflux disease without esophagitis; M81.0 Age-related osteoporosis without current pathological fracture; Z86.73 Personal history of transient ischemic attack (TIA), and cerebral infarction without residual deficits; Z87.891 Personal history of nicotine dependence; Z90.710 Acquired absence of both cervix and uterus; Z98.41 Cataract extraction status, right eye; I25.2 Old myocardial infarction; Z99.2 Dependence on renal dialysis; Z98.42 Cataract extraction status, left eye; Z99.81 Dependence on supplemental oxygen; Z88.8 Allergy status to other drugs, medicaments and biological substances
CPT/HCPCS: 36415; 36600; 71045; 80048; 82375; 82542; 82805; 83540; 83550; 83735; 84100; 84484; 86850; 86900; 93005; 94660; 96374; 96375; 99291; J0360; J2930; J3490; J7620

== ENCOUNTER 2018-05-23 09:00 | Inpatient (IN) | payer MEDICARE, MEDICAID, OTHER ==
[~2018-05-23] VITALS: Ht 162.6 cm; Wt 40.8 kg
[2018-05-23 09:35] LABS: BASOPHILS % 0.6 % (0.0-2.0); HEMATOCRIT. 35.9 % (36.0-48.0); HEMOGLOBIN. 11.8 g/dL (12.0-16.0); LYMPHOCYTES % 17.4 % (20.0-50.0); MEAN CORPUSCULAR HEMOGLOBIN 31.8 pg (28.0-32.0); MEAN CORPUSCULAR VOLUME 96.7 fL (81.0-99.0); MEAN PLATELET VOLUME 7.6 fl (7.4-10.4); MONOCYTES % 10.1 % (2.0-8.0); NEUTROPHILS % 70.9 % (40.0-76.0); PLATELET 158 x1000/uL (130-400); RED BLOOD CELL COUNT 3.71 mill/uL (4.2-5.4); RED CELL DISTRIBUTION WIDTH 15.1 % (11.6-14.6)
[2018-05-23 09:44] LABS: CHLORIDE 101 mEq/L (98-107); INR 1.1
[2018-05-23 09:50] LABS: PHOSPHORUS 2.4 mg/dL (2.5-4.9)
[2018-05-23] MEDS ORDERED: ALBUTEROL (0.083%) 2.5MG/3ML NEB HHN STA ×2 (10:05→11:17)
[2018-05-23] MEDS ORDERED: HYDRALAZINE 20MG/ML VIAL IV ONE (10:15)
[2018-05-23] MEDS ORDERED: IPRATROPIUM BROMIDE (0.02%) 0.5MG/2.5ML NEB HHN STA (11:17)
[2018-05-23] MEDS ORDERED: LEVOFLOXACIN 250MG PREMIX 50 ML IV ONE (11:30)
[2018-05-23 16:03] VITALS: BP 167/59
[2018-05-23] MEDS ORDERED: HYDR-4135 MT (16:19)
[2018-05-23] MEDS ORDERED: CARV12.545 PO (16:22)
[2018-05-23 17:01] VITALS: BP 167/59
[2018-05-23] MEDS: FAMOTIDINE 20MG TABLET PO SCH (17:27)
[2018-05-23] MEDS: SEVELAMER CARBONATE 800 MG TABLET PO SCH (17:27)
[2018-05-23 20:00] VITALS: BP 146/64
[2018-05-23] MEDS: IPRATROPIUM/ALBUTEROL 0.5-3(2.5)MG/3ML NEB HHN SCH (20:24)
[2018-05-23] MEDS: LEVETIRACETAM 500MG TABLET PO SCH (21:39)
[2018-05-23] MEDS: CARVEDILOL 12.5MG TABLET PO SCH (21:40)
[2018-05-23] MEDS: HYDRALAZINE HCL 50MG TABLET PO SCH (21:40)
[2018-05-24] VITALS: BP 153/87
[2018-05-24] MEDS: IPRATROPIUM/ALBUTEROL 0.5-3(2.5)MG/3ML NEB HHN SCH ×4 (02:33→20:36)
[2018-05-24 04:00] VITALS: BP 119/60
[2018-05-24 08:00] VITALS: BP 165/66
[2018-05-24] MEDS: HYDRALAZINE HCL 50MG TABLET PO SCH ×2 (08:42→20:03)
[2018-05-24] MEDS: CARVEDILOL 12.5MG TABLET PO SCH ×2 (08:42→20:03)
[2018-05-24] MEDS: LOSARTAN POTASSIUM 100 MG TABLET PO SCH (08:43)
[2018-05-24] MEDS: FLUTICASONE/VILANTEROL 200-25 BLST.W.DEV ORI SCH (09:35)
[2018-05-24] MEDS: SEVELAMER CARBONATE 800 MG TABLET PO SCH ×3 (09:35→18:10)
[2018-05-24] MEDS: FAMOTIDINE 20MG TABLET PO SCH (09:36)
[2018-05-24] MEDS: LEVETIRACETAM 500MG TABLET PO SCH ×2 (09:36→20:03)
[2018-05-24] MEDS: CLOPIDOGREL 75MG TABLET PO SCH (09:36)
[2018-05-24] MEDS: FOLIC ACID/VITAMIN B COMP W-C TABLET PO SCH (09:36)
[2018-05-24 12:00] VITALS: BP 162/55
[2018-05-24] MEDS: METHYLPREDNISOLONE SOD SUCC 40 MG/ML VIAL IV SCH ×2 (16:00→22:13)
[2018-05-24 16:30] VITALS: BP 143/70
[2018-05-24 20:00] VITALS: BP 188/83
[2018-05-24] MEDS: ENOXAPARIN 30MG/0.3ML SYR SUBCUT SCH (20:03)
[2018-05-25] VITALS: BP 180/72
[2018-05-25] MEDS: HYDRALAZINE 20MG/ML VIAL IV PRN ×2 (00:30→15:44)
[2018-05-25] MEDS: IPRATROPIUM/ALBUTEROL 0.5-3(2.5)MG/3ML NEB HHN SCH ×4 (02:00→20:59)
[2018-05-25 04:00] VITALS: BP 158/79
[2018-05-25] MEDS: METHYLPREDNISOLONE SOD SUCC 40 MG/ML VIAL IV SCH ×3 (05:20→21:05)
[2018-05-25 06:16] LABS: BASOPHILS % 0.2 % (0.0-2.0); HEMATOCRIT. 40.4 % (36.0-48.0); HEMOGLOBIN. 13.1 g/dL (12.0-16.0); MEAN CORPUSCULAR HEMOGLOBIN 31.7 pg (28.0-32.0); MEAN CORPUSCULAR VOLUME 97.3 fL (81.0-99.0); MEAN PLATELET VOLUME 8.1 fl (7.4-10.4); MONOCYTES % 2.3 % (2.0-8.0); NEUTROPHILS % 87.5 % (40.0-76.0); PLATELET 155 x1000/uL (130-400); RED BLOOD CELL COUNT 4.15 mill/uL (4.2-5.4); RED CELL DISTRIBUTION WIDTH 15.5 % (11.6-14.6)
[2018-05-25 06:46] LABS: PHOSPHORUS 2.7 mg/dL (2.5-4.9)
[2018-05-25 08:00] VITALS: BP 140/83
[2018-05-25] MEDS: CARVEDILOL 12.5MG TABLET PO SCH ×2 (09:26→20:17)
[2018-05-25] MEDS: SEVELAMER CARBONATE 800 MG TABLET PO SCH ×3 (09:26→18:30)
[2018-05-25] MEDS: LOSARTAN POTASSIUM 100 MG TABLET PO SCH (09:26)
[2018-05-25] MEDS: HYDRALAZINE HCL 50MG TABLET PO SCH ×2 (09:26→20:16)
[2018-05-25] MEDS: LEVETIRACETAM 500MG TABLET PO SCH ×2 (09:26→20:16)
[2018-05-25] MEDS: FOLIC ACID/VITAMIN B COMP W-C TABLET PO SCH (09:26)
[2018-05-25] MEDS: CLOPIDOGREL 75MG TABLET PO SCH (09:27)
[2018-05-25] MEDS: FAMOTIDINE 20MG TABLET PO SCH (09:27)
[2018-05-25] MEDS: FLUTICASONE/VILANTEROL 200-25 BLST.W.DEV ORI SCH (09:31)
[2018-05-25 12:00] VITALS: BP 138/79
[2018-05-25 16:00] VITALS: BP 207/79
[2018-05-25 20:00] VITALS: BP 170/70
[2018-05-25] MEDS: ENOXAPARIN 30MG/0.3ML SYR SUBCUT SCH (20:16)
[2018-05-26] VITALS: BP 155/68
[2018-05-26 04:00] VITALS: BP 165/80
[2018-05-26] MEDS: METHYLPREDNISOLONE SOD SUCC 40 MG/ML VIAL IV SCH ×2 (05:12→14:00)
[2018-05-26 05:45] LABS: EOSINOPHILS % 0.1 % (0.0-5.0); HEMATOCRIT. 33.5 % (36.0-48.0); LYMPHOCYTES % 14.8 % (20.0-50.0); MEAN CORPUSCULAR HEMOGLOBIN 31.7 pg (28.0-32.0); MEAN CORPUSCULAR VOLUME 97.1 fL (81.0-99.0); MEAN PLATELET VOLUME 8.8 fl (7.4-10.4); MONOCYTES % 6.1 % (2.0-8.0); PLATELET 150 x1000/uL (130-400); RED BLOOD CELL COUNT 3.45 mill/uL (4.2-5.4); RED CELL DISTRIBUTION WIDTH 15.6 % (11.6-14.6)
[2018-05-26 07:17] LABS: PHOSPHORUS 4.4 mg/dL (2.5-4.9)
[2018-05-26 08:00] VITALS: BP 181/75
[2018-05-26] MEDS: FLUTICASONE/VILANTEROL 200-25 BLST.W.DEV ORI SCH (08:18)
[2018-05-26] MEDS: LOSARTAN POTASSIUM 100 MG TABLET PO SCH (08:19)
[2018-05-26] MEDS: LEVETIRACETAM 500MG TABLET PO SCH (08:19)
[2018-05-26] MEDS: FAMOTIDINE 20MG TABLET PO SCH (08:19)
[2018-05-26] MEDS: SEVELAMER CARBONATE 800 MG TABLET PO SCH ×2 (08:19→13:14)
[2018-05-26] MEDS: HYDRALAZINE HCL 50MG TABLET PO SCH (08:19)
[2018-05-26] MEDS: CLOPIDOGREL 75MG TABLET PO SCH (08:19)
[2018-05-26] MEDS: FOLIC ACID/VITAMIN B COMP W-C TABLET PO SCH (08:19)
[2018-05-26] MEDS: CARVEDILOL 12.5MG TABLET PO SCH (08:20)
[2018-05-26] MEDS: IPRATROPIUM/ALBUTEROL 0.5-3(2.5)MG/3ML NEB HHN SCH ×2 (08:32→14:18)
[2018-05-26 09:15] VITALS: BP 159/71
[2018-05-26 12:00] VITALS: BP 146/59
[2018-05-26 14:41] VITALS: BP 150/66
== END 2018-05-26 15:58 | disposition home or self-care (01) | DRG 189 ==
LOC: ER 09:00 → 7WST 11:14 → EDBEDREQ 11:23 → ENRESERV 14:07
PROVIDERS: ADMIT Internal Medicine Critical Care Medicine; ATTEND Internal Medicine Critical Care Medicine
PROC: 5A09357 Assistance with Respiratory Ventilation, Less than 24 Consecutive Hours, Continuous Positive Airway Pressure (ICD-10-PCS; principal; 2018-05-23)
PROC: 5A1D70Z Performance of Urinary Filtration, Intermittent, Less than 6 Hours Per Day (ICD-10-PCS; 2018-05-24)
PROC: 5A09357 Assistance with Respiratory Ventilation, Less than 24 Consecutive Hours, Continuous Positive Airway Pressure (ICD-10-PCS; 2018-05-25)
PROC: 5A1D70Z Performance of Urinary Filtration, Intermittent, Less than 6 Hours Per Day (ICD-10-PCS; 2018-05-26)
DX: J96.22 Acute and chronic respiratory failure with hypercapnia (principal); N18.6 End stage renal disease; I12.0 Hypertensive chronic kidney disease with stage 5 chronic kidney disease or end stage renal disease; N25.81 Secondary hyperparathyroidism of renal origin; J96.21 Acute and chronic respiratory failure with hypoxia; I16.0 Hypertensive urgency; D64.9 Anemia, unspecified; E83.39 Other disorders of phosphorus metabolism; F03.90 Unspecified dementia, unspecified severity, without behavioral disturbance, psychotic disturbance, mood disturbance, and anxiety; G40.909 Epilepsy, unspecified, not intractable, without status epilepticus; J43.9 Emphysema, unspecified; M32.9 Systemic lupus erythematosus, unspecified; Z96.1 Presence of intraocular lens; Z66 Do not resuscitate; R91.8 Other nonspecific abnormal finding of lung field; Z82.49 Family history of ischemic heart disease and other diseases of the circulatory system; Z87.891 Personal history of nicotine dependence; Z90.710 Acquired absence of both cervix and uterus; Z90.79 Acquired absence of other genital organ(s); Z90.722 Acquired absence of ovaries, bilateral; Z99.2 Dependence on renal dialysis; Z98.42 Cataract extraction status, left eye; Z88.8 Allergy status to other drugs, medicaments and biological substances; Z98.41 Cataract extraction status, right eye; Z79.899 Other long term (current) drug therapy; Z79.02 Long term (current) use of antithrombotics/antiplatelets
CPT/HCPCS: 36415; 71045; 80048; 83605; 83735; 84100; 84145; 84484; 93005; 94640; 94660; 96374; 99285; C1893; J0360; J1650; J1956; J2920; J7611; J7620